=== PATIENT | female | born 1985 | race Caucasian/White ===

== ENCOUNTER 2020-11-27 15:03 | Inpatient (IN) | payer MEDICAID ==
[2020-11-27] MEDS ORDERED: Sodium Chloride 0.9% 10 ML Syringe FLUSH PRN (19:37)
[2020-11-27] MEDS ORDERED: Nalbuphine 10 MG/1 ML Vial IVPUSH PRN (19:37)
[2020-11-27] MEDS ORDERED: Ampicillin 2 GM in Sodium Chloride 0.9% 100 ML IV ONE (19:37)
--- NOTE | 2020-11-27 19:44 | PCM.LDHP ---
L&D History of Present Illness - General Date of Service: 11/27/20 Admit Problem/Dx: Patient Status Order with Admit Dx/Problem 11/27/20 18:15 Patient Status [ADT] Routine Admission Diagnosis/Problem Admission Diagnosis/Problem - Related Data Allergies/Adverse Reactions: Allergies Allergy/AdvReac Type Severity Reaction Status Date / Time No Known Allergies Allergy Verified 11/27/20 18:15 Home Medications: Home Meds Pnv No.95/Ferrous Fum/Folic AC [ Tablet] 1 each PO DAILY 11/27/20 [History] H&P Review of Systems - Review of Systems: Review Of Systems: See Below General: Reports: No Symptoms HEENT: Reports: No Symptoms Pulmonary: Reports: No Symptoms Cardiovascular: Reports: No Symptoms Gastrointestinal: Reports: No Symptoms Genitourinary: Reports: No Symptoms Musculoskeletal: Reports: No Symptoms Skin: Reports: No Symptoms Psychiatric: Reports: No Symptoms Neurological: Reports: No Symptoms Hematologic/Lymphatic: Reports: No Symptoms Immunologic: Reports: No Symptoms L&D Exam - Exam Exam: See Below - Vital Signs Vital Signs: Last Vital Signs Temp 36.8 C 11/27/20 17:58 Pulse 73 11/27/20 17:58 Resp 16 11/27/20 17:58 BP 128/82 11/27/20 17:58 Pulse Ox 98 11/27/20 17:58 Weight: 73.936 kg - OB Specific Contraction Intensity: Irritability Movement: Active Heart Tones: Present Heart Rate (FHR) Variability: Moderate (6-25 bpm) Presentation: Vertex - Lucas Score Lucas Score Cervix Position: Midposition Lucas Score Consistency: Soft Lucas Score Effacement: 31-50% Lucas Score Dilation: 1-2 cm Lucas Score Infant's Station: -2 Lucas Score Total: 6 - Exam General: Alert, Oriented HEENT: PERRLA, Conjunctiva Clear, EACs Clear, EOMI, Hearing Intact, Mucosa Moist & [place], Nares Patent, Normal Nasal Septum, Posterior Pharynx Clear, TMs Clear Neck: Supple, Trachea Midline Lungs: Clear to Auscultation, Normal Respiratory Effort Cardiovascular: Regular Rate, Regular Rhythm GI/Abdominal Exam: Normal Bowel Sounds, Soft, Non-Tender, No Organomegaly, No Distention, No Abnormal Bruit, No Mass, Pelvis Stable Rectal Exam: Normal Exam Genitourinary: Normal external exam, Normal bimanual exam, Normal speculum exam (pooling on speculum exam) Back Exam: Normal Inspection, Full Range of Motion Extremities: Normal Inspection, Normal Range of Motion, Non-Tender, No Pedal Edema, Normal Capillary Refill Skin: Warm, Dry, Intact Neurological: Cranial Nerves Intact, Reflexes Equal Bilateral Psychiatric: Alert, Normal Affect, Normal Mood - Patient Data Lab Results Last 24 hrs: Laboratory Results - last 24 hr 11/27/20 Range/Units 18:59 Membrane Rupture Problem List Initiated/Reviewed/Updated: Yes Orders Last 24hrs: Active Orders 24 hr Category Date Time Status Patient Status [ADT] Routine ADT 11/27/20 18:15 Active Activity as Tolerated [RC] PFP Care 11/27/20 19:37 Ordered Communication Order [RC] ASDIRECTED Care 11/27/20 19:37 Ordered Heart Tones [RC] ASDIRECTED Care 11/27/20 19:38 Ordered Non Stress Test [RC] PER UNIT ROUTINE Care 11/27/20 18:15 Active Non Stress Test [RC] PER UNIT ROUTINE Care 11/27/20 19:37 Ordered Notify Provider [RC] PFP Care 11/27/20 19:37 Ordered Notify Provider [RC] PRN Care 11/27/20 19:37 Ordered Peripheral IV Care [RC] . DIRECTED Care 11/27/20 19:38 Ordered Up ad Amira [RC] ASDIRECTED Care 11/27/20 18:16 Active Vaginal Exam [RC] PRN Care 11/27/20 18:16 Active Vital Signs [RC] PER UNIT ROUTINE Care 11/27/20 18:15 Active Vital Signs [RC] PER UNIT ROUTINE Care 11/27/20 19:37 Ordered Regular Diet [DIET] Diet 11/27/20 Dinner Active Regular Diet [DIET] Diet 11/27/20 Dinner Ordered CBC W/O DIFF,HEMOGRAM [HEME] Stat Lab 11/27/20 19:37 Ordered RAPID PLASMA REAGIN,RPR [CHEM] Routine Lab 11/27/20 19:37 Ordered TYPE AND SCREEN [BBK] Stat Lab 11/27/20 19:37 Ordered Ampicillin 1 gm Med 11/27/20 19:45 Ordered Sodium Chloride 0.9% [Normal Saline] 100 ml IV Q4H Ampicillin 2 gm Med 11/27/20 19:37 Ordered Sodium Chloride 0.9% [Normal Saline] 100 ml IV ONETIME Lactated Ringers [Ringers, Lactated] 1,000 ml Med 11/27/20 19:45 Ordered IV ASDIRECTED Nalbuphine [Nubain] Med 11/27/20 19:37 Ordered 10 mg IVPUSH Q2H PRN Sodium Chloride 0.9% [Saline Flush] Med 11/27/20 19:37 Ordered 10 ml FLUSH ASDIRECTED PRN Electronic Heart Tones Ext w TOCO [WOMSER] Oth 11/27/20 19:37 Ordered Routine Electronic Heart Tones Internal [WOMSER] Per Unit Oth 11/27/20 19:37 Ordered Routine Peripheral IV Insertion Adult [OM.PC] Routine Oth 11/27/20 19:37 Ordered Resuscitation Status Routine Resus Stat 11/27/20 18:15 Ordered Medication Orders Lactated Ringer's (Ringers, Lactated) 1,000 mls @ 100 mls/hr IV ASDIRECTED MELVIN Ampicillin Sodium 2 gm/ Sodium (Chloride) 100 mls @ 200 mls/hr IV ONETIME ONE Stop: 11/27/20 20:06 Ampicillin Sodium 1 gm/ Sodium (Chloride) 100 mls @ 200 mls/hr IV Q4H MELVIN Nalbuphine HCl (Nalbuphine 10 Mg/1 Ml Vial) 10 mg IVPUSH Q2H PRN PRN Reason: Pain Sodium Chloride (Sodium Chloride 0.9% 10 Ml Syringe) 10 ml FLUSH ASDIRECTED PRN PRN Reason: Keep Vein Open Assessment/Plan Comment:: 34 year old here with SROM - positive amnisure and pooling. - Admit, labs, pitocin, patient desires epidural. Antibiotics for GBS. Anticipate .
[2020-11-27] MEDS: Lactated Ringers 1,000 ML IV SCH (20:15)
[2020-11-27] MEDS ORDERED: Oxytocin/Lactated Ringers 10 UNIT/1,000 ML BAG IV SCH (20:30)
[2020-11-28] MEDS ORDERED: Bupivacaine 0.25% 10 ML SDV ONE
[2020-11-28] MEDS: Ampicillin 1 GM in Sodium Chloride 0.9% 100 ML IV SCH ×5 (00:35→17:24)
--- NOTE | 2020-11-28 01:38 | PCM.PREANE ---
Preanesthetic Assessment - Procedure Proposed Procedure: Labor epidural - Anesthesia/Transfusion/Family Hx Anesthesia History: Prior Anesthesia Without Reaction Family History of Anesthesia Reaction: No Transfusion History: No Prior Transfusion(s) Intubation History: Unknown - Review of Systems General: No Symptoms Pulmonary: No Symptoms Cardiovascular: No Symptoms Gastrointestinal: Abdominal Pain (uterine contactions) Neurological: No Symptoms Other: Reports: Easy Bruising - Physical Assessment NPO Status Date: 11/28/20 NPO Status Time: 00:01 Vital Signs: Last Vital Signs Temp 98.3 F 11/27/20 17:58 Pulse 73 11/27/20 17:58 Resp 16 11/27/20 17:58 BP 128/82 11/27/20 17:58 Pulse Ox 98 11/27/20 17:58 Height: 1.7 m Weight: 73.936 kg ASA Class: 2 Mental Status: Alert & Oriented x3 Airway Class: Mallampati = 2 Dentition: Reports: Normal Dentition Thyro-Mental Finger Breadths: 3 Mouth Opening Finger Breadths: 3 ROM/Head Extension: Full Lungs: Clear to Auscultation, Normal Respiratory Effort Cardiovascular: Regular Rate, Regular Rhythm, No Murmurs - Lab Values: Laboratory Last Values WBC 14.19 K/mm3 (3.98-10.04) H 11/27/20 19:51 RBC 4.31 M/mm3 (3.98-5.22) 11/27/20 19:51 Hgb 13.6 gm/dl (11.2-15.7) D 11/27/20 19:51 Hct 40.7 % (34.1-44.9) 11/27/20 19:51 MCV 94.4 fl (79.4-94.8) 11/27/20 19:51 MCH 31.6 pg (25.6-32.2) 11/27/20 19:51 MCHC 33.4 g/dl (32.2-35.5) 11/27/20 19:51 RDW Std Deviation 44.1 fL (36.4-46.3) 11/27/20 19:51 Plt Count 229 K/mm3 (182-369) 11/27/20 19:51 MPV 10.9 fl (9.4-12.3) 11/27/20 19:51 Membrane Rupture 11/27/20 18:59 RPR Non-reactive (NONREACTIVE) 11/27/20 19:51 SARS-CoV-2 RNA (PABLITO) Negative (NEGATIVE) 11/27/20 19:30 Blood Type B POSITIVE 11/27/20 19:51 Gel Antibody Screen Negative 11/27/20 19:51 - Allergies Allergies/Adverse Reactions: Allergies Allergy/AdvReac Type Severity Reaction Status Date / Time No Known Allergies Allergy Verified 11/27/20 18:15 - Blood Blood Available: No - Anesthesia Plan Pre-Op Medication Ordered: None - Acknowledgements Anesthesia Type Planned: Epidural Pt an Appropriate Candidate for the Planned Anesthesia: Yes Alternatives and Risks of Anesthesia Discussed w Pt/Guardian: Yes Pt/Guardian Understands and Agrees with Anesthesia Plan: Yes PreAnesthesia Questionnaire HEENT History: Reports: None Cardiovascular History: Reports: None Respiratory History: Reports: None Gastrointestinal History: Reports: GERD Genitourinary History: Reports: None TRANSPORT SPECIALIST History: Reports: Musculoskeletal History: Reports: None Neurological History: Reports: Migraines, Other (See Below) Other Neuro History: states she has not had a headache since 1st trimester Psychiatric History: Reports: None Endocrine/Metabolic History: Reports: None Hematologic History: Reports: None Immunologic History: Reports: None Oncologic (Cancer) History: Reports: None Dermatologic History: Reports: None - Past Surgical History Female Surgical History: Reports: Breast Implant Neurological Surgical History: Reports: None Musculoskeletal Surgical History: Reports: Other (See Below) Other Musculoskeletal Surgeries/Procedures:: rt wrist plate - SUBSTANCE USE Tobacco Use Status *Q: Never Tobacco User Tobacco Use Within Last Twelve Months: No Second Hand Smoke Exposure: No Days Per Week of Alcohol Use: 0 Number of Drinks Per Day: 0 Total Drinks Per Week: 0 Recreational Drug Use History: No - HOME MEDS Home Medications: Home Meds Pnv No.95/Ferrous Fum/Folic AC [ Tablet] 1 each PO DAILY 11/27/20 [History] - CURRENT (IN HOUSE) MEDS Current Meds: Current Medications Lactated Ringer's (Ringers, Lactated) 1,000 mls @ 100 mls/hr IV ASDIRECTED [facility] Last Admin: 11/27/20 20:15 Dose: 100 mls/hr Documented by: Ampicillin Sodium 1 gm/ Sodium (Chloride) 100 mls @ 200 mls/hr IV Q4H [facility] Last Admin: 11/28/20 00:35 Dose: 200 mls/hr Documented by: Oxytocin/Lactated Ringer's (Pitocin In Lr 10 Units/1,000 Ml) 10 unit in 1,000 mls @ 12 mls/hr IV TITRATE MELVIN; Protocol Last Titration: 11/28/20 00:30 Dose: 6 munits/min, 36 mls/hr Documented by: Nalbuphine HCl (Nalbuphine 10 Mg/1 Ml Vial) 10 mg IVPUSH Q2H PRN PRN Reason: Pain Sodium Chloride (Sodium Chloride 0.9% 10 Ml Syringe) 10 ml FLUSH ASDIRECTED PRN PRN Reason: Keep Vein Open Discontinued Medications Ampicillin Sodium 2 gm/ Sodium (Chloride) 100 mls @ 200 mls/hr IV ONETIME ONE Stop: 11/27/20 20:06 Last Admin: 11/27/20 20:16 Dose: 200 mls/hr Documented by:
[2020-11-28] MEDS ORDERED: diphenhydrAMINE 50 MG/ML SDV IVPUSH PRN (01:57)
[2020-11-28] MEDS ORDERED: fentaNYL 100 MCG/2 ML SDV EPIDUR PRN (01:57)
[2020-11-28] MEDS ORDERED: ePHEDrine 50 MG/ML SDV IVPUSH PRN (01:57)
[2020-11-28] MEDS: Bupivacaine/fentaNYL/NS 100 ML Bag EPIDUR PRN ×2 (02:14→11:18)
--- NOTE | 2020-11-28 02:41 | PCM.PNLD ---
Labor Progress Note - VS & Meds Vital Signs: Last Vital Signs Temp 36.8 C 11/27/20 17:58 Pulse 73 11/27/20 17:58 Resp 16 11/27/20 17:58 BP 128/82 11/27/20 17:58 Pulse Ox 98 11/27/20 17:58 Active Medications: Current Medications Diphenhydramine HCl (Diphenhydramine 50 Mg/Ml Sdv) 25 mg IVPUSH Q6H PRN PRN Reason: pruritis Ephedrine Sulfate (Ephedrine 50 Mg/Ml Sdv) 5 mg IVPUSH ASDIRECTED PRN PRN Reason: Hypotension Fentanyl (Fentanyl 100 Mcg/2 Ml Sdv) 100 mcg EPIDUR Q3H PRN PRN Reason: Pain Last Admin: 11/28/20 02:14 Dose: 100 mcg Documented by: Fentanyl/Bupivacaine HCl (Bupivacaine/Fentanyl/Ns 100 Ml Bag) 100 ml EPIDUR ASDIRECTED PRN PRN Reason: Pain Last Admin: 11/28/20 02:14 Dose: 100 ml Documented by: Lactated Ringer's (Ringers, Lactated) 1,000 mls @ 100 mls/hr IV ASDIRECTED MELVIN Last Admin: 11/27/20 20:15 Dose: 100 mls/hr Documented by: Ampicillin Sodium 1 gm/ Sodium (Chloride) 100 mls @ 200 mls/hr IV Q4H [facility] Last Admin: 11/28/20 00:35 Dose: 200 mls/hr Documented by: Oxytocin/Lactated Ringer's (Pitocin In Lr 10 Units/1,000 Ml) 10 unit in 1,000 mls @ 12 mls/hr IV TITRATE [facility]; Protocol Last Titration: 11/28/20 00:30 Dose: 6 munits/min, 36 mls/hr Documented by: Nalbuphine HCl (Nalbuphine 10 Mg/1 Ml Vial) 10 mg IVPUSH Q2H PRN PRN Reason: Pain Sodium Chloride (Sodium Chloride 0.9% 10 Ml Syringe) 10 ml FLUSH ASDIRECTED PRN PRN Reason: Keep Vein Open Discontinued Medications Ampicillin Sodium 2 gm/ Sodium (Chloride) 100 mls @ 200 mls/hr IV ONETIME ONE Stop: 11/27/20 20:06 Last Admin: 11/27/20 20:16 Dose: 200 mls/hr Documented by: - Uterine Contractions Contraction Intensity: Irritability - Monitoring Heart Rate (FHR) Variability: Moderate (6-25 bpm) - Vaginal Exam Dilation (cm): 1 Effacement (Percent): 60 Station: -2 Cervical Position: Midposition - Labor Progress (Free Text) Labor Progress: Increasingly uncomfortable. REquested epidural.
[2020-11-28] MEDS: Lactated Ringers 1,000 ML IV SCH ×2 (04:12→11:50)
[2020-11-28] MEDS ORDERED: Benzocaine/Menthol 20%-0.5% Spray 56 GM Canister TOP PRN ×2 (16:15→20:04)
[2020-11-28] MEDS ORDERED: Witch Hazel Medicated Pads 40/Jar TOP PRN ×2 (16:15→20:04)
[2020-11-28] MEDS ORDERED: Ibuprofen 600 MG Tab PO PRN (16:15)
--- NOTE | 2020-11-28 19:52 | PCM.SN.2 ---
- Free Text/Narrative Note: Delivery note: Stage I: Fariha is a 34-year-old 1 now para 1-0-0-1 female admitted on the evening of 11/27/2020 at 37-3/7 weeks with spontaneous rupture membranes, positive AmniSure and early labor. She had a positive AmniSure in the clinic and this was repeated again in the hospital. She was noted to be ruptured with small amount of pooling present and continuous small amount of leakage. Patient reports some contractions and good activity. She is monitored for short period time and started on Pitocin as it is uncertain as to when the SROM had occurred. Pitocin was increased to facilitate good labor pattern. heart tones remained reassuring throughout the labor course. She slowly progressed to complete cervical dilation by approximately 1200 hrs. on 11/28/2020. She then began pushing. It should be noted she had an epidural in place with good results. Stage II: Fariha delivered a viable, covington, male infant at 1503 hrs. on 11/28/2020 in a direct occiput anterior position over an intact perineum. The baby had Apgars of 7 and 9, a weight of 2850 g (6 pounds 4.5 ounces) and a length of 19.5 inches. The baby was placed on mom's abdomen, was dried with a warm blanket and nose and mouth were bulb suction. Upon delivery Pitocin was increased to 500 cc an hour with solution of 10 units in a liter. This to facilitate increase in uterine tone and decrease likelihood of bleeding. Examination of the perineum and vagina showed a very superficial left vaginal laceration which was not bleeding and had no anatomic distortion therefore was not sutured. The umbilical cord was allowed to pulsate for approximately 3 minutes and then was clamped x2 and cut by the baby's father. Cord was obtained. The umbilical cord had 3 vessels present within it. Stage III: The placenta delivered at 1510 hrs. in a Ramirez presentation, appeared intact and complete and was discarded per patient desire. Patient plans to breast-feed. Condition: Good
[2020-11-28] MEDS ORDERED: Acetaminophen 325 MG Tab PO PRN (20:04)
[2020-11-29] MEDS: Ibuprofen 600 MG Tab PO PRN ×2 (03:21→08:29)
--- NOTE | 2020-11-29 07:26 | PCM48HPAN ---
Post Anesthesia Note - EVALUATION WITHIN 48HRS OF ANESTHETIC Vital Signs in Normal Range: Yes Patient Participated in Evaluation: Yes Respiratory Function Stable: Yes Airway Patent: Yes Cardiovascular Function Stable: Yes Hydration Status Stable: Yes Pain Control Satisfactory: Yes Nausea and Vomiting Control Satisfactory: Yes Mental Status Recovered: Yes Vital Signs: Last Vital Signs Temp 36.6 C 11/29/20 04:01 Pulse 80 11/29/20 04:01 Resp 14 11/29/20 04:01 BP 102/61 11/29/20 04:01 Pulse Ox 99 11/29/20 04:01 - COMMENTS/OBSERVATIONS Free Text/Narrative:: no anesthesia complications noted
[2020-11-29] MEDS: Prenatal Multivitamin with Calcium/Folic Acid/Iron Tab PO SCH (08:29)
--- NOTE | 2020-11-29 09:06 | PCM.SN.2 ---
- Free Text/Narrative Note: Post Progress Note PPD #1 Subjective: Doing well overall. Ambulating without difficulty. Lochia minimal. Voiding without difficulty. Tolerating regular diet without nausea or vomiting. Pain controlled with oral medications. Reports that she is having some pain in her lower back where her epidural was placed. She did get some relief with use of warm bath. Breast-feeding with formula supplementation with minimal difficulty. Objective: Vitals: Vital Signs - 24 hr 11/28/20 11/29/20 21:22 04:01 Temperature 37.0 C 36.6 C Pulse, 76 80 Peripheral Respiratory 15 14 Rate Blood Pressure 116/76 102/61 O2 Sat by Pulse 99 99 Oximetry Physical Exam General: Alert and oriented, no acute distress Lungs: Clear to auscultation bilaterally Heart: Regular rate and rhythm Abdomen: Soft, minimal appropriate tenderness, non-distended, fundus off to the right of midline, nontender, and at the umbilicus Extremities: No edema in bilateral lower extremities, no calf tenderness bilaterally ASSESSMENT: 34-year-old female -0-0-1 s/p normal vaginal delivery PPD #1, complicated by GBS positive status and received a total of 5 doses of antibiotics prior to delivery PLAN: Doing well Breast-feeding with formula supplementation with minimal difficulty. Assist as needed Lochia minimal. Continue to monitor for appropriate lochia. Continue routine care Anticipate discharge home tomorrow Ramirez Mercado MD 9:05 AM 11/29/2020
[2020-11-29] MEDS: Docusate Sodium 100 MG Cap PO PRN (16:57)
[2020-11-30] MEDS: Ibuprofen 600 MG Tab PO PRN ×2 (00:18→06:43)
[2020-11-30] MEDS: Ampicillin 1 GM in Sodium Chloride 0.9% 100 ML IV SCH (02:23)
--- NOTE | 2020-11-30 08:37 | PCM.DCSUM1 ---
Discharge Summary - Hospital Course Free Text/Narrative:: Stage I: Fariah is a 34-year-old 1 now para 1-0-0-1 female admitted on the evening of 11/27/2020 at 37-3/7 weeks with spontaneous rupture membranes, positive AmniSure and early labor. She had a positive AmniSure in the clinic and this was repeated again in the hospital. She was noted to be ruptured with small amount of pooling present and continuous small amount of leakage. Patient reports some contractions and good activity. She is monitored for short period time and started on Pitocin as it is uncertain as to when the SROM had occurred. Pitocin was increased to facilitate good labor pattern. heart tones remained reassuring throughout the labor course. She slowly progressed to complete cervical dilation by approximately 1200 hrs. on 11/28/2020. She then began pushing. It should be noted she had an epidural in place with good results. Stage II: Fariha delivered a viable, covington, male at 1503 hrs. on 11/28/2020 in a direct occiput anterior position over an intact perineum. The baby had Apgars of 7 and 9, a weight of 2850 g (6 pounds 4.5 ounces) and a length of 19.5 inches. The baby was placed on mom's abdomen, was dried with a warm blanket and nose and mouth were bulb suction. Upon delivery Pitocin was increased to 500 cc an hour with solution of 10 units in a liter. This to facilitate increase in uterine tone and decrease likelihood of bleeding. Examination of the perineum and vagina showed a very superficial left vaginal laceration which was not bleeding and had no anatomic distortion therefore was not sutured. The umbilical cord was allowed to pulsate for approximately 3 minutes and then was clamped x2 and cut by the baby's father. Cord was obtained. The umbilical cord had 3 vessels present within it. Stage III: The placenta delivered at 1510 hrs. in a Ramirez presentation, appeared intact and complete and was discarded per patient desire. Patient plans to breast-feed. patient is done very well. She is ambulating well, voiding without problems, has minimal lochia and is nursing without concerns. She is desiring discharge home. Condition: Good Diagnosis: Stroke: No - Discharge Data Discharge Date: 11/30/20 Discharge Disposition: Home, Self-Care 01 Condition: Good - Referral to Home Health Primary Care Physician: Mel Amato MD - Patient Instructions Diet: Regular Diet as Tolerated Activity: As Tolerated (No intercourse tampons till seen back. No lifting greater than 15 pounds or driving a car x7 days.) Driving: Do Not Drive Showering/Bathing: May Shower Wound/Incision Care: Keep Operative Site/Wound Site Clean and Dry Notify Provider of: Fever, Increased Pain, Swelling and Redness, Nausea and/or Vomiting - Discharge Plan Home Medications: Home Meds Pnv No.95/Ferrous Fum/Folic AC [ Tablet] 1 each PO DAILY 11/27/20 [History] Acetaminophen [Tylenol] 650 mg PO Q4H PRN tablet 11/30/20 [Rx] Ibuprofen [Motrin] 600 mg PO Q4H PRN tablet 11/30/20 [Rx] Referrals: Alberto Schaffer MD [Physician] - (Return to clinicDr. Schaffer2 weeks.) - Discharge Summary/Plan Comment DC Time >30 min.: No Total # of Minutes for Discharge Time: 10 Discharge Summary/Plan Comment: Discharge instructions: 1. Discharge home 2. Diet, activity and follow-up discussed with patient. Recommend nursing diet with increased calories and calcium. 3. Precautions given concern increased pain, bleeding, temperature, signs/symptoms of DVT/PE. 4. Medications per home medication was printed, discussed with and given to the patient. 5. Return to clinic-Dr. Schaffer[facility] in 2 weeks. Diagnosis: Term -delivered Condition: Good - Patient Data Vitals - Most Recent: Last Vital Signs Temp 36.6 C 11/30/20 02:57 Pulse 66 11/30/20 02:57 Resp 14 11/30/20 02:57 BP 111/54 L 11/30/20 02:57 Pulse Ox 97 11/30/20 02:57 Weight - Most Recent: 73.936 kg I&O - Last 24 hours: Intake & Output 11/29/20 11/30/20 11/30/20 22:59 06:59 14:59 Intake Total 0 Balance 0 Med Orders - Current: Current Medications Acetaminophen (Acetaminophen 325 Mg Tab) 650 mg PO Q4H PRN PRN Reason: mild pain or fever Last Admin: 11/29/20 09:43 Dose: 650 mg Documented by: Benzocaine/Menthol (Benzocaine/Menthol 20%-0.5% Atkinson 56 Gm Canister) 0 gm TOP ASDIRECTED PRN PRN Reason: Perineal Comfort Measure Docusate Sodium (Docusate Sodium 100 Mg Cap) 100 mg PO BID PRN PRN Reason: Constipation Last Admin: 11/29/20 16:57 Dose: 100 mg Documented by: Ibuprofen (Ibuprofen 600 Mg Tab) 600 mg PO Q4H PRN PRN Reason: Mild pain or fever Last Admin: 11/30/20 06:43 Dose: 600 mg Documented by: Prenjaymie Multivit/[place]/Iron/Folic Ac ( Multivitamin With Calcium/Folic Acid/Iron Tab) 1 each PO DAILY [facility] Last Admin: 11/29/20 08:29 Dose: 1 each Documented by: Angela Flores (Angela Flores Medicated Pads 40/Jar) 1 pad TOP ASDIRECTED PRN PRN Reason: Perineal Comfort Measure Discontinued Medications Benzocaine/Menthol (Benzocaine/Menthol 20%-0.5% Atkinson 56 Gm Canister) 1 gm TOP ASDIRECTED PRN PRN Reason: Perineal Comfort Measure Last Admin: 11/28/20 17:24 Dose: 1 canister Documented by: Bupivacaine HCl (Bupivacaine 0.25% 10 Ml Sdv) 10 ml .ROUTE .[facility] Stop: 11/28/20 00:01 Diphenhydramine HCl (Diphenhydramine 50 Mg/Ml Sdv) 25 mg IVPUSH Q6H PRN PRN Reason: pruritis Ephedrine Sulfate (Ephedrine 50 Mg/Ml Sdv) 5 mg IVPUSH ASDIRECTED PRN PRN Reason: Hypotension Fentanyl (Fentanyl 100 Mcg/2 Ml Sdv) 100 mcg EPIDUR Q3H PRN PRN Reason: Pain Last Admin: 11/28/20 02:14 Dose: 100 mcg Documented by: Fentanyl/Bupivacaine HCl (Bupivacaine/Fentanyl/Ns 100 Ml Bag) 100 ml EPIDUR ASDIRECTED PRN PRN Reason: Pain Last Admin: 11/28/20 11:18 Dose: 100 ml Documented by: Lactated Ringer's (Ringers, Lactated) 1,000 mls @ 100 mls/hr IV ASDIRECTED MELVIN Last Admin: 11/28/20 11:50 Dose: 100 mls/hr Documented by: Ampicillin Sodium 2 gm/ Sodium (Chloride) 100 mls @ 200 mls/hr IV ONETIME ONE Stop: 11/27/20 20:06 Last Admin: 11/27/20 20:16 Dose: 200 mls/hr Documented by: Ampicillin Sodium 1 gm/ Sodium (Chloride) 100 mls @ 200 mls/hr IV Q4H MELVIN Last Admin: 11/30/20 02:23 Dose: Not Given Documented by: Oxytocin/Lactated Ringer's (Pitocin In Lr 10 Units/1,000 Ml) 10 unit in 1,000 mls @ 12 mls/hr IV TITRATE MELVIN; Protocol Last Titration: 11/28/20 16:00 Dose: Infused Documented by: Ibuprofen (Ibuprofen 600 Mg Tab) 600 mg PO Q6H PRN PRN Reason: Pain Nalbuphine HCl (Nalbuphine 10 Mg/1 Ml Vial) 10 mg IVPUSH Q2H PRN PRN Reason: Pain Sodium Chloride (Sodium Chloride 0.9% 10 Ml Syringe) 10 ml FLUSH ASDIRECTED PRN PRN Reason: Keep Vein Open Witch Sandra (Witch Sandra Medicated Pads 40/Jar) 1 pad TOP ASDIRECTED PRN PRN Reason: Perineal Comfort Measure Last Admin: 11/28/20 17:23 Dose: 1 tub Documented by:
[2020-11-30] MEDS: Docusate Sodium 100 MG Cap PO PRN (10:02)
[2020-11-30] MEDS: Prenatal Multivitamin with Calcium/Folic Acid/Iron Tab PO SCH (10:02)
== END 2020-11-30 10:45 | disposition home or self-care (01) | DRG 807 ==
LOC: JD.OB 15:03 → OBSVTOIN 11-28 15:03 → JD.OB 11-28 15:04
PROVIDERS: ADMIT Obstetrics & Gynecology; ATTEND Obstetrics & Gynecology
PROC: 10E0XZZ Delivery of Products of Conception, External Approach (ICD-10-PCS; principal; 2020-11-28)
PROC: 3E0R3BZ Introduction of Anesthetic Agent into Spinal Canal, Percutaneous Approach (ICD-10-PCS; 2020-11-28)
PROC: 00HU33Z Insertion of Infusion Device into Spinal Canal, Percutaneous Approach (ICD-10-PCS; 2020-11-28)
PROC: 3E0R3BZ Introduction of Anesthetic Agent into Spinal Canal, Percutaneous Approach (ICD-10-PCS; 2020-11-28)
PROC: 00HU33Z Insertion of Infusion Device into Spinal Canal, Percutaneous Approach (ICD-10-PCS; 2020-11-28)
DX: O99.824 Streptococcus B carrier state complicating childbirth (principal); Z37.0 Single live birth; O99.62 Diseases of the digestive system complicating childbirth; K21.9 Gastro-esophageal reflux disease without esophagitis; Z20.822 Contact with and (suspected) exposure to COVID-19; Z3A.37 37 weeks gestation of pregnancy; O70.0 First degree perineal laceration during delivery
CPT/HCPCS: 01967; 36415; 51701; 51702; 51798; 59025; 59409; 84112; 85027; 86592; 86850; 86900; 86901; A9270-GY; J0290; J2590; J3010; J3490; J7120; U0002